=== PATIENT | female | born 1940 | race Caucasian/White ===

== ENCOUNTER 2019-10-05 13:52 | Emergency (ER) | payer OTHER ==
[2019-10-05] MEDS ORDERED: MECLIZINE HCL 25 MG TABLET (FP) PO ONE (14:12)
--- NOTE | 2019-10-05 14:12 | PDOC ---
Rapid Medical Evaluation Chief Complaint: Lightheaded Time Seen by Provider: 10/05/19 14:09 Medical Evaluation: 10/05/19 14:10 CC: dizziness since last week, worse when standing, feels as if the room is spinning, mild nausea, no other complaints, denies hx vertigo Exam: vss, lcta Plan: head ct, cardiac w/u, meclizine Discharge Disposition - Diagnosis Dizziness - Referrals - Patient Instructions - Post Discharge Activity
[2019-10-05 14:14] VITALS: BMI 28.1
--- NOTE | 2019-10-05 15:01 | PDOC ---
History of Present Illness - General Chief Complaint: Lightheaded Stated Complaint: DIZZINESS Time Seen by Provider: 10/05/19 14:09 - History of Present Illness Initial Comments: HPI: This is an 79 y/o female patient who presented to the ED today after visiting urgent care. She woke up in the middle of the night and said that "ev erything was spinning." She was unable to go back to sleep, and the only thing that improved the spinning was sitting straight up in a chair. At urgent care, they did an EKG and told her to come to the ED. She denies any head trauma prior to the episode, chest pain, SOB, or weakness. She says the spinning comes on when she moves here head to the side. When she keeps her head straight it doesn't happen. She is able to ambulate with a cane as long as she walks straight. ROS: (+): Dizziness (-): Chest pain, SOB, N/V, weakness PMH: HTN, Arthritis Meds: Propanolol Allergies: Denies PE: General: Patient is awake and alert in no apparent distress Cardiac: RRR, no murmurs appreciated Lungs: Clear to auscultation bilaterally HEENT: Head without trauma, PERRL. No nystagmus appreciated. Neuro: CN2-9 intact. Strength intact and equal bilaterally in both upper and lower extremities. Gait intact. MDM: This is an 79 y/o female in generally good health presenting for what is presenting like a first time episode of BPPV. Given her age and her EKG at the urgent care, a decision was made to obtain additional cardiac labs, as well as a head CT. The patient refused the head CT despite understanding the risks of missing a stroke. She was given 25mg of Meclizine in the ED with improvement in her symptoms. Repeat EKG showed no acute processes. 10/05/19 17:41 Past History - Medical History Allergies/Adverse Reactions: Allergies Allergy/AdvReac Type Severity Reaction Status Date / Time No Known Allergies Allergy Verified 10/05/19 14:14 Home Medications: Ambulatory Orders Meclizine HCl 25 mg PO DAILY PRN #14 tablet 10/05/19 COPD: No HTN: Yes - Psycho-Social/Smoking History Smoking History: Never smoked - Substance Abuse Hx (Audit-C & DAST Scrn) How often the patient has a drink containing alcohol: Never Score: In Men: 4 or > Positive; In Women: 3 or > Positive: 0 Screen Result (Pos requires Nsg. Audit-10AR): Negative *Physical Exam - Vital Signs Last Vital Signs Temp Pulse Resp BP Pulse Ox 98.3 F 72 18 180/89 H 99 10/05/19 14:09 10/05/19 14:09 10/05/19 14:09 10/05/19 14:09 10/05/19 14:09 Heart Score/ECG Review - ECG Intrepretation Rhythm: Regular Rhythm Comment:: Normal Sinus Rhythm Septal infarct, age undetermined Rate: 70 KS interval 178 ms QRS duration 88ms QT/QTc: 404/436 10/05/19 17:28 - ECG Impressions Normal ECG: No ED Treatment Course - LABORATORY CBC & Chemistry Diagram: 10/05/19 14:55 10/05/19 14:55 Discharge - Discharge Information Problems reviewed: Yes Clinical Impression/Diagnosis: Dizziness, Vertigo Condition: Improved Disposition: HOME - Admission No - Additional Discharge Information Plan of Treatment: You came in due to dizziness. We ran labs which came back WNL. You were given 25mg of Meclizine with improvement in symptoms. You refused a CT scan of your head despite our concerns about a possible stroke. Follow-up with PCP in 2-3 days Return if worsening or concerning symptoms. 14 days worth of Meclizine was sent to your pharmacy. Take one tablet as needed every 24 hours for the vertigo. Prescriptions: Meclizine HCl 25 mg PO DAILY PRN #14 tablet PRN Reason: Vertigo - Follow up/Referral Referrals: Shabana Cullen [Primary Care Provider] - - Patient Discharge Instructions Patient Printed Discharge Instructions: Benign Paroxysmal Positional Vertigo - Post Discharge Activity
[2019-10-05 15:12] LABS: BASO % 0.9 % (0-2.0); EOS % 2.9 % (0-4.5); HEMATOCRIT 36.7 % (32.4-45.2); HEMOGLOBIN 11.9 GM/dL (10.7-15.3); LYMPH % 29.7 % (8-40); MCH 30.3 pg (25.7-33.7); MCHC 32.4 g/dl (32.0-36.0); MEAN CELL VOLUME 93.4 fl (80-96); MEAN PLT VOLUME 8.2 fl (7.5-11.1); MONO % 7.8 % (3.8-10.2); NEUT % 58.7 % (42.8-82.8); PLATELET COUNT 265 K/MM3 (134-434); RBC 3.93 M/mm3 (3.60-5.2); RDW 14.8 % (11.6-15.6); WHITE BLOOD COUNT 5.3 K/mm3 (4.0-10.0)
[2019-10-05 15:42] LABS: ALBUMIN 3.7 g/dl (3.4-5.0); ALK PHOS 83 U/L (45-117); ANION GAP 9 MMOL/L (8-16); BILIRUBIN,TOTAL 0.5 mg/dL (0.2-1); BLOOD UREA NITROGEN 10.1 mg/dL (7-18); CALCIUM 9.2 mg/dL (8.5-10.1); CHLORIDE 106 mmol/L (98-107); CO2 27 mmol/L (21-32); CREATININE 0.6 mg/dL (0.55-1.3); GLUCOSE,RANDOM 99 mg/dL (74-106); MAGNESIUM 2.3 mg/dL (1.8-2.4); SGOT/AST 20 U/L (15-37); SGPT/ALT 24 U/L (13-61); SODIUM 141 mmol/L (136-145)
[2019-10-05] MEDS ORDERED: MECLIZINE HCL 12.5 MG TABLET ONE (16:24)
--- NOTE | 2019-10-05 17:01 | PDOC ---
Documentation entered by Talia Crawford SCRIBE, acting as scribe for Maame Portillo MD. Maame Portillo MD: This documentation has been prepared by the Malena dasilva Nirvannie, SCRIBE, under my direction and personally reviewed by me in its entirety. I confirm that the documentation accurately reflects all work, treatment, procedures, and medical decision making performed by me. Attending Attestation - Resident Resident Name: Shruti Springer - ED Attending Attestation I have performed the following: I have examined & evaluated the patient, The case was reviewed & discussed with the resident, I agree w/resident's findings & plan, Exceptions are as noted - HPI HPI: 10/05/19 15:25 The patient is an 79 year old female with a significant past medical history of HTN who presents to the ED with 1 week of dizziness. As per patient, her symptoms onset last week and is described as room spinning worsened with standing and with associated mild nausea. Allergies: NKDA - Physicial Exam PE: 10/05/19 16:56 Pt is alert and oriented x 3. CV: rrr no m/r/g Pulm: CTA b/l abdomen: soft, non tender, non distended without guarding or rebound. Neuro: CN grossly intact. Ambulatory in the ED with steady gait. - Medical Decision Making 10/05/19 16:57 Pt presents to the ED complaining of vertigo that occurs mostly with going from lying to standing. Denies other complaints. Neurologically intact. Patient is refusing brain imaging although she understands the risk of CVA given her age. Will treat with meclizine and check labs, likely discharge home if labs are normal. Discharge - Discharge Information Problems reviewed: Yes Clinical Impression/Diagnosis: Dizziness, Vertigo Condition: Improved Disposition: HOME - Additional Discharge Information Plan of Treatment: You came in due to dizziness. We ran labs which came back WNL. You were given 25mg of Meclizine with improvement in symptoms. You refused a CT scan of your head despite our concerns about a possible stroke. Follow-up with PCP in 2-3 days Return if worsening or concerning symptoms. 14 days worth of Meclizine was sent to your pharmacy. Take one tablet as needed every 24 hours for the vertigo. Prescriptions: Meclizine HCl 25 mg PO DAILY PRN #14 tablet PRN Reason: Vertigo - Follow up/Referral Referrals: Shabana Cullen [Primary Care Provider] - - Patient Discharge Instructions Patient Printed Discharge Instructions: Benign Paroxysmal Positional Vertigo - Post Discharge Activity
[2019-10-05 18:04] VITALS: BP 165/71; PULSE 76; TEMP 98
--- NOTE | 2019-10-06 10:46 | EKG ---
Test Reason : Blood Pressure : / mmHG Vent. Rate : 070 BPM Atrial Rate : 070 BPM P-R Int : 178 ms QRS Dur : 088 ms QT Int : 404 ms P-R-T Axes : -01 -21 -18 degrees QTc Int : 436 ms NORMAL SINUS RHYTHM MINIMAL VOLTAGE CRITERIA FOR LVH, MAY BE NORMAL VARIANT SEPTAL INFARCT , AGE UNDETERMINED NONSPECIFIC ST ABNORMALITY NO PREVIOUS ECGS AVAILABLE Confirmed by KENNEDI GROSS MD ([id number]) on 10/06/2019 10:46:26 AM Referred By: Confirmed By:KENNEDI GROSS MD
== END 2019-10-05 18:20 | disposition home or self-care (01) ==
LOC: JER 13:52
DX: R42 Dizziness and giddiness (principal)
CPT/HCPCS: 36415; 71045-TC-FY; 80053; 82550; 83735; 84484; 85025; 93005; 93010; 99285-25